=== PATIENT | male | born 1950 | race Caucasian/White ===

== ENCOUNTER → 2022-02-13 | Day surgery (SDC) | payer MEDICARE ==
[2022-02-10 12:16] VITALS: BP 130/70
[2022-02-10 13:15] LABS: BUN 17 mg/dl (7-24); CHLORIDE 107 mmol/L (98-107); CREATININE 0.97 mg/dL (0.70-1.30); SODIUM 139 mmol/L (136-145)
[~2022-02-13] VITALS: Ht 172.7 cm; Wt 108.9 kg
[2022-02-13] VITALS (8 sets, daily range): BP systolic 124–145; BP diastolic 59–98
[~2022-02-13] MED LIST: ARIPIPRAZOLE10 MG PO; ENALAPRIL MALE2.5 MG PO; EUTHYROX50 MCG PO; HYDROCODONE-AC1 EAC1 PO; LEVOTHYROXINE50 MCG PO; Lopressor25 MG PO; NKHM; ROSUVASTATIN CA40 MG PO; SERTRALINE HYD100 MG PO
== END | disposition home or self-care (01) ==
LOC: SDC 02-10 11:53
PROVIDERS: ATTEND Orthopaedic Surgery
DX: M70.62 Trochanteric bursitis, left hip (principal); L89.221 Pressure ulcer of left hip, stage 1; M76.892 Other specified enthesopathies of left lower limb, excluding foot; E78.00 Pure hypercholesterolemia, unspecified; I10 Essential (primary) hypertension; I25.2 Old myocardial infarction; I25.10 Atherosclerotic heart disease of native coronary artery without angina pectoris; Z79.899 Other long term (current) drug therapy; Z85.048 Personal history of other malignant neoplasm of rectum, rectosigmoid junction, and anus; Z98.890 Other specified postprocedural states

== ENCOUNTER → 2024-04-14 | Outpatient (CLI) | payer MEDICARE ==
[~2024-04-14] MED LIST changes: +GADOTERATE MEGLUMINE 10 MMOL/20 ML VIAL IV ONE
== END | disposition home or self-care (01) ==
LOC: MRI 12:36
PROVIDERS: ATTEND Orthopaedic Surgery
DX: S76.012A Strain of muscle, fascia and tendon of left hip, initial encounter (principal); S73.192A Other sprain of left hip, initial encounter; M16.12 Unilateral primary osteoarthritis, left hip; M76.22 Iliac crest spur, left hip; M70.62 Trochanteric bursitis, left hip; X58.XXXA Exposure to other specified factors, initial encounter; Y93.89 Activity, other specified; Y92.89 Other specified places as the place of occurrence of the external cause; Y99.8 Other external cause status